=== PATIENT | female | born 1995 | race Caucasian/White ===

== ENCOUNTER 2022-07-07 12:28 | Emergency (ER) | payer BC, SELFPAY ==
--- NOTE | ~2022-07-07 | XR_ITS ---
EXAMINATION: XR chest 2V DATE: 07/07/2022 13:11 INDICATION: Right-sided posterior rib pain and tightness. TECHNIQUE: PA and lateral views of the chest were obtained. COMPARISON: None FINDINGS: The lungs are clear with no focal airspace opacities, pulmonary edema, pleural effusion or pneumothor ax. The cardiomediastinal silhouette is normal. Visualized bones and soft tissues are unremarkable. IMPRESSION: 1. No acute cardiopulmonary disease. Reviewed, dictated and finalized at location A. NCIAL COACH
[2022-07-07 12:31] VITALS: BP 126/80; PULSE 99; RESP 16; TEMP 36.5; O2SAT 100
--- NOTE | 2022-07-07 13:41 | ED.GENADULT ---
HPI - General Adult General Chief complaint: Back Pain/Injury Stated complaint: MID THORACIC BACK PAIN Time Seen by Provider: 07/07/22 12:38 History of Present Illness HPI narrative: 26-year-old female present to the emergency department for evaluation of right posterior shoulder pain. Patient reports prior to arrival she was sitting on a couch leaning on the armrest when she had onset to the right posterior shoulder pain located near the scapula. Patient states when she sat up attempted to move around the pain did not resolve. Patient denies any associated chest pain or shortness of breath. Patient denies any other falls or injuries. Patient denies any midline back pain. Related Data Allergies Allergy/AdvReac Type Severity Reaction Status Date / Time No Known Allergies Allergy Verified 07/07/22 12:55 Review of Systems Review of Systems: All systems reviewed & are unremarkable except as noted in HPI and below PMFSH Past Medical History Medical History Headache Surgical History Surgical History [place] teeth removed Family History Family History Other Alcoholism Breast cancer Depression Hypertension Social History Social History Smoking status: Never smoker Alcohol intake: current Substance use: current Substance use type: marijuana Exam Narrative: APPEARANCE: Well appearing, no pain, no distress, well-nourished. HEAD: normocephalic, atraumatic. EYES: PERRLA/EOMI, conjunctivae clear. NOSE: Normal no drainage NECK: Supple. No adenopathy, no masses. RESPIRATORY: Airway patent, respirations nonlabored. Clear to auscultation bilaterally, no rales, rhonchi, wheezing. CARDIOVASCULAR: Regular rate and rhythm without murmurs rubs or gallops. ABDOMINAL: Soft, nontender, nondistended, normal bowel sounds MUSCULOSKELETAL: Moves all extremities. Reproducible tenderness to palpation at the right medial scapular edge. NEURO: Alert. Cranial nerves II through XII intact. Grossly intact SKIN: Warm, dry. Normal Color. No rash Course Course Emergency Course: 26-year-old female presenting with right posterior scapular pain. Patient declined any medications for pain control. Patient was after the results of her imaging which was negative for rib fracture, pneumothorax, pneumonia. Suspect musculoskeletal injury due to the reproducible nature of the pain and the fact that she was sitting in a strange position at the time of the symptoms. Patient was advised to take Tylenol and I Profen for pain control. Patient also provided a prescription for Flexeril for muscle spasm. Patient was encouraged of close follow-up with her primary care physician. All question concerns were addressed. Vital Signs Vital signs: Vital Signs Temperature 97.7 F 07/07/22 12:31 Pulse Rate 99 07/07/22 12:31 Respiratory Rate 16 07/07/22 12:31 Blood Pressure 126/80 07/07/22 12:31 Pulse Oximetry 100 07/07/22 12:31 Temperature 97.7 F 07/07/22 12:31 Pulse Rate 99 07/07/22 12:31 Respiratory Rate 16 07/07/22 12:31 Blood Pressure 126/80 07/07/22 12:31 Pulse Oximetry 100 07/07/22 12:31 Medical Decision Making Vital Signs Vital Signs: Vital Signs Temperature 97.7 F 07/07/22 12:31 Pulse Rate 99 07/07/22 12:31 Respiratory Rate 16 07/07/22 12:31 Blood Pressure 126/80 07/07/22 12:31 Pulse Oximetry 100 07/07/22 12:31 Temperature 97.7 F 07/07/22 12:31 Pulse Rate 99 07/07/22 12:31 Respiratory Rate 16 07/07/22 12:31 Blood Pressure 126/80 07/07/22 12:31 Pulse Oximetry 100 07/07/22 12:31 Imaging Data Radiologist's impression: Impressions Chest X-Ray 07/07/22 13:32 IMPRESSION: 1. No acute cardiopulmonary disease. Discharge Plan Disc
== END 2022-07-07 14:17 | disposition home or self-care (01) ==
PROVIDERS: Emergency Provider Emergency Medicine
DX: M54.9 Dorsalgia, unspecified (principal)
CPT/HCPCS: 71046; 99283

== ENCOUNTER 2023-07-05 11:36 | Emergency (ER) | payer BC, SELFPAY ==
--- NOTE | ~2023-07-05 | XR_ITS ---
EXAMINATION: XR chest 1V portable INDICATION: Right-sided chest pain TECHNIQUE: Portable AP chest at 1304 hours COMPARISON: 07/07/2022 FINDINGS: The lungs are free of acute opacities. No pleural effusion or pneumothorax. The cardiomedia stinal silhouette is normal. IMPRESSION: 1. No acute cardiopulmonary abnormality. Reviewed, dictated and finalized at location B. R PUMPER
[2023-07-05 11:37] VITALS: BP 133/92; PULSE 93; RESP 17; TEMP 36.4; O2SAT 100
--- NOTE | 2023-07-05 12:19 | ED.BACK ---
HPI - Back Pain/Injury General Chief Complaint: Back Pain/Injury Stated Complaint: back pain Time Seen by Provider: 07/05/23 11:56 Source: patient and other (boyfriend) Mode of arrival: ambulatory Limitations: no limitations History of Present Illness HPI Narrative: 27 yo presents with pain on the right side of her back. It started Saturday. No trauma/injuries. No paresthesias. She started PT yesterday for other issues. Took ibuprofen for a headache, last dose Saturday PM without change in back/shoulder pain. Denies urinary urgency/frequency/hematuria, dysuria. Denies drug use. She states it doesn't feel muscular, it feels internal. No cough. Described as a pulsating, intermittent pain. No abdominal/groin pain, nausae/vomiting, fevers. 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 Related Data Allergies Allergy/AdvReac Type Severity Reaction Status Date / Time No Known Allergies Allergy Verified 07/05/23 11:36 [facility] Past Medical History Medical History Headache Surgical History Surgical History [place] teeth removed Family History Family History Other Alcoholism Breast cancer Depression Hypertension Social History Social History Smoking status: Never smoker Alcohol intake: current Substance use: current Substance use type: marijuana Exam Narrative: GENERAL: Well-appearing, well-nourished, and in no acute distress. HEAD: Normocephalic, atraumatic. EYES: Non injected, non icteric ENT: Nares clear, no rhinorrhea or epistaxis. NECK: Supple. CHEST: Speaking in complete sentences . No respiratory distress. HEART: Regular rate and rhythm. . BACK: Patient has mild tenderness to palation at base of right scapula/under right scapula. No TTP of C/t/L spine which are midline without bony step offs. No paravertebral pain. Normal curvature of spine and no deformities while bending at the waist. ABDOMEN: Soft, nondistended. Non tender to palpation. Harding sign negative. EXTREMITIES: Normal range of motion. No edema. SKIN: Warm, dry, no rash. NEURO: No focal deficits. Alert and oriented x3. PSYCH: Normal mood and affect. Course Vital Signs Vital signs: Vital Signs Temperature 97.6 F 07/05/23 11:37 Pulse Rate 93 07/05/23 11:37 Respiratory Rate 17 07/05/23 11:37 Blood Pressure 133/92 H 07/05/23 11:37 Pulse Oximetry 100 07/05/23 11:37 Oxygen Delivery Room Air 07/05/23 11:37 Temperature 97.8 F 07/05/23 13:43 Pulse Rate 91 07/05/23 13:43 Respiratory Rate 16 07/05/23 13:43 Blood Pressure 126/80 07/05/23 13:43 Pulse Oximetry 100 07/05/23 13:43 Oxygen Delivery Room Air 07/05/23 11:37 MDM - Back Pain/Injury MDM Narrative Medical decision making narrative: Patient presents with what is initially described as right back pain. Appears located at/just below right scapula posteriorly. Reassuring physical exam. Work up unremarkable. Discharged in stable condition. Advised to take pain medications and follow up with PCP and/or already undergoing physical therapy for another issue. Differential Diagnosis Differential diagnosis: Likely renal colic, pyelonephritis, thoracic back pain and discitis Medical Records Attestation: I reviewed the patient's medical records. Medical records narrative: Does appear patient presented for similar on 07/07/2022 to the ED Lab Data Attestation: I reviewed the patient's lab results. Lab results narrative: No anemia, thrombocytopenia, leukocytosis. Normal renal function without marked electrolyte abnormalities. test negative. 07/05/23 12:37 07/05/23 12:37 Labs: Lab Results 07/05/23 Range/Units 12:37 WBC 8.2 (4.5-10.0) K/mm3 RBC 4.81 (4.2-5.4) M/mm3 Hgb 13.9 (12
[2023-07-05] MEDS: ACETAMINOPHEN 500 MG TABLET 1000 MG PO (12:33)
[2023-07-05 12:45] LABS: Basophils Percent Auto 0.5 % (0.2-1.2); Eosinophils Absolute Auto 0.1 K/mm3 (0-0.3); Hematocrit 42.6 % (37.0-47.0); Hemoglobin 13.9 g/dL (12.0-15.0); Immature Granulocyte Absolute 0.02 K/mm3 (0.00-0.031); Immature Granulocyte Percent A 0.2 % (0-0.5); Lymphocytes Absolute Auto 1.76 K/mm3 (0.9-3.2); Lymphocytes Percent Auto 21.4 % (18.3-44.2); Mean Corpuscular HGB Conc 32.6 g/dl (32-36); Mean Corpuscular Hemoglobin 28.9 pg (26-34); Mean Corpuscular Volume 88.6 fl (80-100); Mean Platelet Volume 9.5 fl (7.4-10.4); Monocytes Absolute Auto 0.4 K/mm3 (0.1-0.6); Monocytes Percent Auto 4.6 % (2.6-8.5); Neutrophils Absolute Auto 5.9 K/mm3 (1.3-6.7); Neutrophils Percent Auto 72.3 % (45.5-73.1); Platelet Count Result 257 k/mm3 (150-375); Red Blood Count 4.81 M/mm3 (4.2-5.4); Red Cell Distribution Width 12.6 % (11.5-14.5); White Blood Count 8.2 K/mm3 (4.5-10.0)
[2023-07-05 12:57] LABS: Alanine Aminotransferase 15 U/L (6-35); Albumin Level 4.3 g/dL (3.5-5.1); Alkaline Phosphatase 79 U/L (38-126); Anion Gap 6 mmol/L (8-16); Aspartate Amino Transferase 20 U/L (14-36); Bilirubin,Total 0.4 mg/dL (0.2-1.3); Blood Urea Nitrogen 11 mg/dL (7-17); Calcium 9.4 mg/dL (8.4-10.2); Carbon Dioxide 27 mmol/L (22-30); Chloride 105 mmol/L (98-107); Estimated CRCL calculation 125 ml/min; Estimated Glomerular Filt Rate > 60; Glucose 98 mg/dL (65-110); Lipase 52 U/L (23-300); Potassium 3.6 mmol/L (3.4-5.0); Sodium 138 mmol/L (137-145)
[2023-07-05 13:43] VITALS: BP 126/80; PULSE 91; RESP 16; TEMP 36.6; O2SAT 100
== END 2023-07-05 13:44 | disposition home or self-care (01) ==
PROVIDERS: Emergency Provider Student in an Organized Health Care Education/Training Program
DX: M25.511 Pain in right shoulder (principal)
CPT/HCPCS: 36415; 71045; 80053; 81025; 83690; 85025; 99283; A9270

== ENCOUNTER 2024-02-15 00:31 | Emergency (ER) | payer BC, SELFPAY ==
--- NOTE | ~2024-02-15 | CT_ITS ---
EXAMINATION: CT abdomen pelvis w con DATE: 02/15/2024 01:49 INDICATION: Right flank and abdomen pain. TECHNIQUE: Computed tomography (CT) of the abdomen and pelvis was performed with 100 cc Omnipaque 350 intravenous contrast. The dose-length product was 827.22 mGy-cm. Automated exposure control and iter ative reconstruction technique were employed. COMPARISON: None. FINDINGS: Lung bases unremarkable. Heart size normal. No significant pleural or pericardial effusion. 2.3 cm right ovarian cyst. Nonobstructive bowel pattern. Gallstones. No secondary findings to sugges t cholecystitis. Fatty infiltration of the liver. There is a small peripherally enhancing 1.4 cm hypo echoic vascular mass of the liver dome, image 8, consistent with benign hemangioma. The spleen, pancr eas, adrenal glands and left kidney are unremarkable. There is a right renal cyst. No free air or steffen e fluid. Small fat-containing umbilical hernia. No lytic or blastic lesions are seen. Nonobstructive bowel gas pattern. No evidence for diverticulitis or appendicitis. IMPRESSION: 1. Right ovarian cyst measuring 2.3 cm. 2: Cholelithiasis. Reviewed, dictated and finalized at location B.
[2024-02-15 00:37] VITALS: BP 128/88; PULSE 101; RESP 14; TEMP 36.7; O2SAT 100
[2024-02-15 00:54] LABS: BEDSIDEPREGUCG Negative (Negative)
[2024-02-15 00:56] LABS: Basophils Absolute Auto 0.1 K/mm3 (0.0-0.1); Basophils Percent Auto 0.7 % (0.2-1.2); Eosinophils Absolute Auto 0.1 K/mm3 (0-0.3); Eosinophils Percent Auto 1.2 % (0-4.4); Hematocrit 39.8 % (37.0-47.0); Hemoglobin 13.4 g/dL (12.0-15.0); Immature Granulocyte Absolute 0.03 K/mm3 (0.00-0.031); Immature Granulocyte Percent A 0.4 % (0-0.5); Lymphocytes Absolute Auto 2.37 K/mm3 (0.9-3.2); Mean Corpuscular HGB Conc 33.7 g/dl (32-36); Mean Corpuscular Hemoglobin 29.5 pg (26-34); Mean Corpuscular Volume 87.7 fl (80-100); Mean Platelet Volume 9.6 fl (7.4-10.4); Monocytes Absolute Auto 0.5 K/mm3 (0.1-0.6); Monocytes Percent Auto 5.7 % (2.6-8.5); Neutrophils Absolute Auto 5.4 K/mm3 (1.3-6.7); Platelet Count Result 312 k/mm3 (150-375); Red Blood Count 4.54 M/mm3 (4.2-5.4); Red Cell Distribution Width 12.7 % (11.5-14.5); White Blood Count 8.5 K/mm3 (4.5-10.0)
[2024-02-15 01:01] LABS: Add Urine Microscopic? YES; Appearance Urine Clear (Clear); Bacteria Urine None Seen /hpf; Bilirubin Urine Negative (Negative); Blood Urine 2+ (Negative); Color Urine Yellow (Yellow); Glucose Urine UA Negative (Negative); Ketones Urine Negative (Negative); Leukocyte Esterase Ur 2+ LEU/UL (Negative); Nitrate Urine Negative (Negative); Non Pathogenic Casts 0-2; Protein Urine Negative (Negative); RBC Urine 0-2 /hpf (0-2); Specific Grav Ur 1.004 (1.001-1.035); Squamous Epithelial Cell Urine None Seen /hpf (Few); Urobilinogen Urine 0.2 mg/dL (<2.0)
[2024-02-15 01:11] LABS: Alanine Aminotransferase 14 U/L (6-35); Albumin Level 4.1 g/dL (3.5-5.1); Alkaline Phosphatase 100 U/L (38-126); Anion Gap 5 mmol/L (4-12); Aspartate Amino Transferase 16 U/L (14-36); Bilirubin,Total 0.3 mg/dL (0.2-1.3); Blood Urea Nitrogen 11 mg/dL (7-17); Calcium 9.3 mg/dL (8.4-10.2); Carbon Dioxide 27 mmol/L (22-30); Chloride 104 mmol/L (98-107); Estimated CRCL calculation 150 ml/min; Estimated Glomerular Filt Rate > 60; Glucose 101 mg/dL (65-110); Potassium 3.7 mmol/L (3.4-5.0); Sodium 136 mmol/L (137-145)
--- NOTE | 2024-02-15 01:25 | ECG_ITS ---
Test Date: 2024-02-15 02:04:08 Measurements Intervals [place] Rate: 93 P: 49 CA: 173 QRS: 49 QRSD: 86 T: 33 QT: 330 QTc: 411 Interpretive Statements SINUS RHYTHM WITHIN NORMAL LIMITS No previous ECG available for comparison Electronically Signed On 02-15-2024 09:50:33 CDT by Helder Vogel M.D.
[2024-02-15] MEDS: SODIUM CHLORIDE 0.9% IV 1,000 ML 999 ML IV CONT (02:06)
--- NOTE | 2024-02-15 02:10 | ED.ABDPAIN ---
HPI - Abdominal Pain General Chief Complaint: Abdominal Pain <Flor Mckeon APRN - Last Filed: 02/15/24 02:56> Stated Complaint: right flank pain, started weeks ago <Flor Mckeon APRN - Last Filed: 02/15/24 02:56> Time Seen by Provider: 02/15/24 00:47 <Flor Mckeon APRN - Last Filed: 02/15/24 02:56> History of Present Illness HPI narrative: Patient is a 28-year-old female presents to the ER with right-sided abdominal pain that radiates to her right flank. She reports the symptoms started 2 weeks ago. Patient reports the symptoms started in her with a dull ache. They have progressively become more severe. She reports her last menstrual period was on January 31 and does not take control. Patient reports she went to urgent care approximately 1 week ago where they did a CT scan but told her there were no abnormal findings. They reported she blood in her urine and put her on Nitrofurantoin, then called her back with the culture results and told her they were negative and to stop taking the antibiotic. Patient reports she has taken ibuprofen once and Tylenol once to help control pain but does not like taking pain medication. She reports she has no medical history pertinent to this ER visit. Patient denies any chest pain, shortness a breath, fevers, other signs/symptoms of illness. <Flor Mckeon APRN - Last Filed: 02/15/24 02:56> Related Data Allergies/Adverse Reactions: Allergies Allergy/AdvReac Type Severity Reaction Status Date / Time No Known Allergies Allergy Verified 02/15/24 00:44 <Flor Mckeon APRN - Last Filed: 02/15/24 02:56> Review of Systems Review of Systems: All systems reviewed & are unremarkable except as noted in HPI and below <Flor Mckeon APRN - Last Filed: 02/15/24 02:56> PMFSH Past Medical History Medical History: Medical History Headache <Flor Mckeon APRN - Last Filed: 02/15/24 02:56> Surgical History Surgical History: Surgical History [place] teeth removed <Flor Mckeon APRN - Last Filed: 02/15/24 02:56> Family History Family History: Family History Other Alcoholism Breast cancer Depression Hypertension <Flor Mckeon APRN - Last Filed: 02/15/24 02:56> Social History Social History: Social History Smoking status: Never smoker Alcohol intake: current Substance use: current Substance use type: marijuana <Flor Mckeon APRN - Last Filed: 02/15/24 02:56> Exam Narrative: GENERAL: Well appearing, well-nourished, non-toxic, in no acute distress. HEAD: Normocephalic, atraumatic. NECK: Supple. No adenopathy, no masses. RESPIRATORY: Airway patent, respirations nonlabored. Clear to auscultation bilaterally, no rales, rhonchi, wheezing. CARDIOVASCULAR: irregular heart rate that varies between 80s and 110s without a murmur. Peripheral pulses 2+ and equal bilaterally. +CVA tenderness ABDOMINAL: Soft, significant tenderness in RUQ, RLQ that increases with palpation, nondistended, no hepatosplenomegaly. Normoactive BS. MUSCULOSKELETAL: Moves all extremities. Strength/ROM intact without gross deformities. SKIN: Warm, dry, normal color. No rashes. NEURO: A&O X3. Speech clear. Cranial nerves II-XII grossly intact. No ataxic movements. PSYCHIATRIC: Appropriate mood and affect. Normal interaction. <Flor Mckeon APRN - Last Filed: 02/15/24 02:56> Course Vital Signs Vital signs: Vital Signs Temperature 36.7 C 02/15/24 00:37 Pulse Rate 101 H 02/15/24 00:37 Respiratory Rate 14 02/15/24 00:37 Blood Pressure 128/88 02/15/24 00:37 Pulse Oximetry 100 02/15/24 00:37 Temperature 36.7 C 02/15/24 00:37 Pu
[2024-02-15 02:12] LABS: Prothrombin Time 13.7 Seconds (11.1-14.7)
[2024-02-15 02:13] LABS: Lactic Acid Reflex 0.8 mmol/L (0.7-2.0)
[2024-02-15 02:15] LABS: CRP < 0.5 mg/dL (<1.0)
[2024-02-15 02:20] VITALS: BP 120/90; PULSE 104; RESP 15; O2SAT 100
[2024-02-15 04:50] VITALS: BP 118/84; PULSE 98; RESP 15; O2SAT 100
== END 2024-02-15 04:51 | disposition home or self-care (01) ==
PROVIDERS: Registered Nurse; Emergency Provider Emergency Medicine
DX: N12 Tubulo-interstitial nephritis, not specified as acute or chronic (principal); N83.201 Unspecified ovarian cyst, right side
CPT/HCPCS: 36415; 74177; 80053; 81001; 81025; 83605; 85025; 85610; 85730; 86140; 87040; 87086; 93005; 96365; 99284; J0696; J7030; Q9967

== ENCOUNTER 2024-04-02 08:52 | Outpatient (CLI) | payer BC, SELFPAY ==
--- NOTE | ~2024-04-02 | US_ITS ---
EXAMINATION: US pelvic complete w TV DATE: 04/02/2024 09:19 INDICATION: Left ovarian cyst. TECHNIQUE: Multiple transabdominal and transvaginal sonographic images of the pelvis were obtained. COMPARISON: CT abdomen and pelvis 02/15/2024 FINDINGS: TRANSABDOMINAL ULTRASOUND: The uterus measures 7.5 x 4.1 x 3.3 cm. There is no free fluid in the pelvis. TRANSVAGINAL ULTRASOUND: The endometrial complex measures 6 mm in thickness. The right ovary measures 2.5 x 2.1 x 2.3 cm. Ther e is normal vascular flow in right ovary. The left ovary is not visualized. IMPRESSION: 1. Normal right ovary. Left ovary not visualized. Note that the left ovary was normal by CT on 2023. Reviewed, dictated and finalized at location A. WORK FINISHER IMPRESSION: 1. Normal right ovary. Left ovary not visualized. Note that the left ovary was normal by CT on 02/15/2024.
== END 2024-04-02 08:53 | disposition home or self-care (01) ==
LOC: GOSHIMG 08:53
PROVIDERS: Visit Provider Obstetrics & Gynecology
DX: N83.202 Unspecified ovarian cyst, left side (principal)
CPT/HCPCS: 76830; 76856